=== PATIENT | female | born 1940 | race Caucasian/White ===

== ENCOUNTER 2017-09-23 11:52 | Emergency (ER) | payer MEDICARE ==
[~2017-09-23] VITALS: Ht 152.4 cm; Wt 55.0 kg
[~2017-09-23 11:52] MED LIST: ALEN70 PO; CALC600T34 PO; DARV PO; ECOT81TA2; LORT5TAB PO; MELO15TA2 PO; TAB-TAB PO
[2017-09-23 11:53] VITALS: BP 150/69; PULSE 107; RESP 16; TEMP 98.4; O2SAT 96
[2017-09-23] MEDS ORDERED: CALC1TAB87 PO (12:03)
[2017-09-23] MEDS ORDERED: GLUC500T4 PO (12:03)
[2017-09-23] MEDS ORDERED: ASPI81TA23 PO (12:03)
[2017-09-23] MEDS ORDERED: REDCAP2 PO (12:03)
[2017-09-23] MEDS ORDERED: RANI150T PO (12:03)
[2017-09-23] MEDS ORDERED: VITA200C3 PO (12:03)
[2017-09-23] MEDS ORDERED: CENTCHW4 CHEW (12:03)
[2017-09-23] MEDS ORDERED: VITA100018 PO (12:03)
[2017-09-23] MEDS ORDERED: FISHCAP4 PO (12:03)
[2017-09-23] MEDS ORDERED: COCO1000 PO (12:03)
[2017-09-23] MEDS ORDERED: CIPR0.2S RIGHT EAR (12:24)
[2017-09-23] MEDS ORDERED: AMOX500T PO (12:24)
--- NOTE | 2017-09-23 12:24 | PD ---
HPI Chief Complaint: ENT Complaint Time Seen by Provider: 12:13 Travel History International Travel<30 days: No Contact w/Intl Traveler<30days: No Traveled to known affect area: No History of Present Illness HPI 77-year-old female here with right ear pain and drainage since 6 AM. She reports she woke with earache and drainage from the right ear after she felt a pop sensation. She denies fever or chills. She is currently being treated for viral bronchitis and has been coughing repeatedly. She denies headache, neck pain, fever or chills. She reports mild pain in the right ear which is constant , throbbing. No aggravating or alleviating factors. PFSH Past Medical History Arthritis: Yes High Cholesterol: Yes Diminished Hearing: Yes GERD: Yes Musculoskeletal: Yes (OSTEOPOROSIS) Immunizations Current: No Tetanus Vaccination: > 5 Years Influenza Vaccination: No ?: Not Menopausal: Yes Past Surgical History Surgical History: No Previous Surgery Social History Alcohol Use: No Tobacco Use: No Substance Use: No Allergies-Medications (Allergen,Severity, Reaction): Coded Allergies: Sulfa (Sulfonamide Antibiotics) (Unverified Allergy, Severe, HIVES, ) Reported Meds & Prescriptions Reported Meds & Active Scripts Active Reported Vitamin E 200 Unit Cap 400 Units PO DAILY Vitamin D3 (Cholecalciferol) 1,000 Unit Tab 1,000 Units PO DAILY Red Yeast Rice (Red Yeast Rice Extract) 600 Mg Cap 1 Cap PO DAILY Ranitidine (Ranitidine HCl) 150 Mg Tab 150 Mg PO DAILY Glucosamine-Chondroitin 500-400 Mg Tab 1 Tab PO DAILY Fish Oil + D3 (Fish Oil-Cholecalciferol) 1,200-1,000 Mg-Unit Cap 1 Cap PO DAILY Coconut Oil 1,000 Mg Cap 1 Cap PO DAILY Centrum (Multiple Vitamins W/ Minerals) 1 Chew 1 Tab CHEW DAILY Calcium 600 with Vitamin D (Calcium Carbonate-Cholecalciferol) 600-400 mg-Unit Tab 1 Tab PO BID Aspirin EC (Aspirin) 81 Mg Tabdr 81 Mg PO DAILY Review of Systems Except as stated in HPI: all other systems reviewed are Neg General / Constitutional: No: Fever HENT: Positive: Ear Discharge, Earache Respiratory: Positive: Cough Physical Exam Narrative GENERAL: Alert and nontoxic appearing female. no distress. She resting comfortably on stretcher. SKIN: Warm and dry. HEAD: Normocephalic. EYES: Pupils equal, round, reactive. No injection or drainage. No photophobia. EAR: Right TM erythema, yellowish blood tinged fluid in the canal. No canal swelling. TM perforation not visualized but suspected. Hearing grossly intact. No mastoid tenderness. NECK: Supple, trachea midline. No JVD or lymphadenopathy. CARDIOVASCULAR: Regular rate and rhythm RESPIRATORY: Breath sounds equal bilaterally. No accessory muscle use. GASTROINTESTINAL: Abdomen soft, non-tender, nondistended. MUSCULOSKELETAL: No cyanosis, or edema. BACK: Nontender without obvious deformity. No CVA tenderness. NEUROLOGICAL: Awake and alert. Cranial nerves II through XII intact. Motor and sensory grossly within normal limits. Five out of 5 muscle strength in all muscle groups. Normal speech. Data Data Last Documented VS Vital Signs Date Time Temp Pulse Resp B/P (MAP) Pulse Ox O2 Delivery O2 Flow Rate FiO2 09/23/17 11:53 98.4 107 16 150/69 (96) 96 MDM Medical Decision Making Medical Screen Exam Complete: Yes Emergency Medical Condition: Yes Differential Diagnosis Otitis media, otitis externa, TM rupture Narrative Course 77 -year-old female here with right ear pain and drainage 6 AM. She is nontoxic appearing. Her vital signs are stable. Hearing grossly intact. I suspect that she has otitis media with TM perforation. She'll be put on antibiotics and instructed to follow-up with ENT. Diagnosis Primary Impression: Otitis media, purulent, acute, with spontaneous rupture of TM Qualified Codes: H66.011 - Acute suppurative otitis media with spontaneous rupture of ear drum, right ear Referrals: Ear / Nose / Throat Specialist Additional Instructions: Take the antibiotics as prescribed. Follow-up with her primary doctor or ear nose & throat specialist. Avoid getting water into the ear. Scripts Ciprofloxacin Otic Drops (Ciprofloxacin Otic Drops) 0.2% Soln 0.25 ML RIGHT EAR BID for Infection for 7 Days, #1 BOX 0 Refills Prov: Zakia Holland 09/23/17 Amoxicillin (Amoxicillin) 500 Mg Tab 500 MG PO TID for Infection for 10 Days, TAB 0 Refills Prov: Zakia Holland 09/23/17 Disposition: 01 DISCHARGE HOME Condition: Stable Zakia Holland Sep 23, 2017 12:24
== END 2017-09-23 12:31 | disposition home or self-care (01) ==
LOC: PHEFT 11:52
DX: H66.91 Otitis media, unspecified, right ear (principal); R05 Cough; M19.90 Unspecified osteoarthritis, unspecified site; E78.00 Pure hypercholesterolemia, unspecified; K21.9 Gastro-esophageal reflux disease without esophagitis; M81.0 Age-related osteoporosis without current pathological fracture; Z79.82 Long term (current) use of aspirin; Z79.899 Other long term (current) drug therapy; Z88.2 Allergy status to sulfonamides
CPT/HCPCS: 99284